=== PATIENT | female | born 1955 | race Caucasian/White ===

== ENCOUNTER 2018-12-25 23:12 | Emergency (ER) | payer OTHER ==
[~2018-12-25] VITALS: Ht 154.9 cm; Wt 54.2 kg
--- NOTE | 2018-12-25 23:22 | NUR ---
EKG OBTAINED IN TRIAGE.
--- NOTE | 2018-12-25 23:47 | NUR ---
CALLED FOR ROOM, NO ANSWER
--- NOTE | 2018-12-26 00:14 | NUR ---
FIRST CONTACT WITH PT. PT C/O HEADACHE FOR LAST SEVERAL DAYS, HIGH BP WHEN MEASURED AT HOME TODAY. DENIES CP. DENIES VISUAL CHANGES. PT NOTES DIFFICULTY BREATHING, STATES "I THINK IT'S BECAUSE I HAVE BRONCHITIS" - PT TAKES LISINOPRIL FOR HTN, LAST DOSE 2129 TONIGHT. PT'S AOX4. RESPS EVEN AND UNLABORED. BP/SPO2 MONITORS IN PLACE. CALL LIGHT WITHIN REACH.
--- NOTE | 2018-12-26 00:25 | NUR ---
BREAK RN: ERP AT BEDSIDE TO EVAL.
--- NOTE | 2018-12-26 00:37 | NUR ---
BREAK RN: PT BACK FROM RADIOLOGY. NSR ON MONITOR. BP 167/88--WILL CONFIRM MED WITH ERP.
--- NOTE | 2018-12-26 00:40 | NUR ---
BREAK RN: LABS DRAWN. ERP AWARE OF PT'S IMPROVED BP. OK TO HOLD CLONIDINE AT THIS TIME.
[2018-12-26 00:44] LABS: BASOPHILS # (AUTO) 0.03 x10^3/uL (0-0.1); BASOPHILS % (AUTO) 1 % (0-1); EOSINOPHILS # (AUTO) 0.14 x10^3/uL (0-0.4); EOSINOPHILS % (AUTO) 2 % (1-7); LYMPHOCYTES # (AUTO) 1.86 x10^3/uL (1-3.4); LYMPHOCYTES % (AUTO) 32 % (22-44); MD NO; MEAN CORPUSCULAR HEMOGLOBIN 30.2 pg (27.0-34.8); MEAN CORPUSCULAR HGB CONC 32.6 g/dL (32.4-35.8); MEAN CORPUSCULAR VOLUME 92.7 fL (80-100); MEAN PLATELET VOLUME 7.7 fL (7.4-10.4); MONOCYTES # (AUTO) 0.48 x10^3/uL (0.2-0.8); MONOCYTES % (AUTO) 8 % (2-9); NEUTROPHILS % (AUTO) 57 % (42-75); PLATELET COUNT 239 x10^3/uL (130-400); RED CELL DISTRIBUTION WIDTH 13.6 % (9.6-15.2)
[2018-12-26 00:55] LABS: ALANINE AMINOTRANSFERASE 21 U/L (12-78); ALBUMIN 3.9 g/dL (3.4-5.0); ANION GAP 5 mmol/L (5-15); CALCIUM 8.9 mg/dL (8.5-10.1); CHLORIDE 109 mmol/L (98-107)
[2018-12-26 00:59] LABS: ALKALINE PHOSPHATASE 94 U/L (45-117); BILIRUBIN,TOTAL 0.2 mg/dL (0.2-1.0); CREATININE 0.69 mg/dL (0.55-1.02); TOTAL PROTEIN 7.4 g/dL (6.4-8.2); TROPONIN I < 0.015 ng/mL (0.000-0.045)
[2018-12-26 01:59] VITALS: BP 138/83
--- NOTE | 2018-12-26 02:00 | NUR ---
PT GIVEN DC INSTRUCTIONS AND SCRIPTS. PT EDUCATED REGARDING DC MEDICATIONS. PT'S AOX4. RESPS EVEN AND UNLABORED. PT AMB TO DC WITH STEADY GAIT. NO ACUTE DISTRESS AT DC.
== END 2018-12-26 02:01 | disposition home or self-care (01) ==
LOC: ED 12-26 00:50
DX: I10 Essential (primary) hypertension (principal); J20.9 Acute bronchitis, unspecified; R51 Headache
CPT/HCPCS: 36415; 71046; 80053; 83880; 84484; 85025; 93005; 99284